=== PATIENT | female | born 1965 | race Caucasian/White ===

== ENCOUNTER 2016-09-22 07:17 | Day surgery (SDC) | payer OTHER ==
[2016-09-22 07:46] VITALS: BMI 22.3
[2016-09-22] MEDS ORDERED: PROPOFOL 20 ML ONE ×3 (07:50)
[2016-09-22] MEDS ORDERED: LIDOCAINE HCL/PF 2% SDV 5ML VIAL ONE (07:50)
[2016-09-22 08:44] VITALS: TEMP 97.5
[2016-09-22 13:06] VITALS: BP 102/66; PULSE 86
== END 2016-09-22 10:30 | disposition home or self-care (01) ==
LOC: JASU-ENDO 07:17
PROVIDERS: ATTEND Internal Medicine Gastroenterology
PROC: 0DJD8ZZ Inspection of Lower Intestinal Tract, Via Natural or Artificial Opening Endoscopic (ICD-10-PCS; principal; 2016-09-22 08:00)
DX: Z86.010 Personal history of colon polyps (principal); K64.8 Other hemorrhoids; K57.30 Diverticulosis of large intestine without perforation or abscess without bleeding; R22.9 Localized swelling, mass and lump, unspecified
CPT/HCPCS: 84703

== ENCOUNTER 2017-01-07 05:04 | Inpatient (IN) | payer OTHER ==
[2017-01-05 15:07] VITALS: BMI 21.7
[2017-01-07] MEDS ORDERED: ROPIVACAINE HCL 0.5% 30ML VIAL ONE (07:22)
[2017-01-07] MEDS ORDERED: MIDAZOLAM HCL 2 MG/2 ML SINGLE DOSE VIAL ONE ×2 (07:24)
--- NOTE | 2017-01-07 08:20 | HP ---
Past Medical History - Primary Care Physician PCP:: Thanh Hale - Admission Chief Complaint: pelvic pain, metrorrhagia, fibroid uterus History of Present Illness: 51 yo f with hx of pelvic pain, irregular painful periods and large fibroid uterus admitted for supracervical abdominal hysterectomy , bilateral salpingectomy, rba discussed with patient. History Source: Patient Limitations to Obtaining History: No Limitations - Past Surgical History Hx Myomectomy: No Hx Transabdominal Cerclage: No - Smoking History Smoking history: Never smoked Have you smoked in the past 12 months: No Aproximately how many cigarettes per day: 0 - Alcohol/Substance Use Hx Alcohol Use: No - Social History History of Recent Travel: No Home Medications - Allergies Allergies/Adverse Reactions: Allergies Allergy/AdvReac Type Severity Reaction Status Date / Time amoxicillin trihydrate Allergy Severe Rash Verified 08/27/14 16:20 [From Augmentin] potassium clavulanate Allergy Severe Rash Verified 08/27/14 16:20 [From Augmentin] - Home Medications Home Medications: Ambulatory Orders Biotin 300 mcg PO DAILY 05/31/14 Multivitamin [One Daily] 1 each PO DAILY 01/05/17 Chlorpheniramine Maleate 4 mg PO PRN PRN 01/07/17 Ranitidine [Zantac -] 150 mg PO DAILY 01/07/17 Review of Systems - Review of Systems Constitutional: reports: Weakness Eyes: reports: No Symptoms HENT: reports: No Symptoms Neck: reports: No Symptoms Cardiovascular: reports: No Symptoms Respiratory: reports: No Symptoms Gastrointestinal: reports: Abdominal Pain, Bloating Genitourinary: reports: Vaginal Bleeding Breasts: reports: No Symptoms Reported Musculoskeletal: reports: No Symptoms Integumentary: reports: No Symptoms Neurological: reports: No Symptoms Endocrine: reports: No Symptoms Hematology/Lymphatic: reports: No Symptoms Psychiatric: reports: No Symptoms Physical Exam-SENIOR SALES MANAGER Vital Signs: Vital Signs Temperature 98.9 F 01/07/17 07:27 Pulse Rate 78 01/07/17 07:27 Respiratory Rate 20 01/07/17 07:27 Blood Pressure 108/69 01/07/17 07:27 O2 Sat by Pulse Oximetry (%) 100 01/07/17 07:27 Constitutional: Yes: Well Nourished, No Distress, Calm Eyes: Yes: WNL, Conjunctiva Clear, EOM Intact HENT: Yes: WNL, Atraumatic, Normocephalic Neck: Yes: WNL, Supple, Trachea Midline Cardiovascular: Yes: WNL, Regular Rate and Rhythm Respiratory: Yes: WNL, Regular, CTA Bilaterally Gastrointestinal: Yes: WNL ...Rectal Exam: Yes: WNL Renal/: Yes: WNL Pelvis: Yes: WNL External Genitalia: Yes: Normal Cervix: Yes: Normal Uterus: Yes: Enlarged, Lumpy, Tender (multiple myomas 14weeks size) Adnexa: Not Palpable: Left, Right Breast(s): Yes: WNL Musculoskeletal: Yes: WNL Extremities: Yes: WNL Edema: No Integumentary: Yes: WNL Neurological: Yes: WNL, Alert, Oriented ...Motor Strength: WNL Psychiatric: Yes: WNL, Alert, Oriented Problem List - Problem (1) Pelvic pain Code(s): R10.2 - PELVIC AND PERINEAL PAIN (2) Metrorrhagia Code(s): N92.1 - EXCESSIVE AND FREQUENT MENSTRUATION WITH IRREGULAR CYCLE (3) Fibroid uterus Code(s): D25.9 - LEIOMYOMA OF UTERUS, UNSPECIFIED Qualifiers: Uterine leiomyoma location: intramural Qualified Code(s): D25.1 - Intramural leiomyoma of uterus (4) Fibroids, intramural Code(s): D25.1 - INTRAMURAL LEIOMYOMA OF UTERUS Assessment/Plan admit for supracervical abdominal hysterectomy, bilateral salpingectomy
[2017-01-07] MEDS ORDERED: DEXAMETHASONE SOD PHOSPHATE 4 MG/1 ML VIAL ONE ×2 (08:23→09:29)
[2017-01-07] MEDS ORDERED: PROPOFOL 20 ML ONE (08:25)
[2017-01-07] MEDS ORDERED: ROCURONIUM BROMIDE 50 MG/5 ML VIAL ONE (08:25)
[2017-01-07] MEDS ORDERED: LIDOCAINE HCL 2% (20ML MULTI-DOSE VIAL) NR ONE (08:25)
[2017-01-07] MEDS ORDERED: CLINDAMYCIN PHOSPHATE 600 MG/4 ML VIAL IVPB ONE (08:30)
[2017-01-07] MEDS ORDERED: LEVOFLOXACIN 500 MG PREMIX BAG IVPB ONE (08:35)
[2017-01-07] MEDS ORDERED: CLINDAMYCIN PHOSPHATE 600 MG/4 ML VIAL ONE (08:35)
[2017-01-07] MEDS ORDERED: LEVOFLOXACIN 500 MG IVPB 100 ML IVPB ONE (08:35)
[2017-01-07] MEDS ORDERED: NEOSTIGMINE METHYLSULFATE 0.5 MG/ML - 10 ML MDV ONE (09:31)
[2017-01-07] MEDS ORDERED: GLYCOPYRROLATE 0.2 MG/1 ML VIAL ONE (09:32)
[2017-01-07] MEDS ORDERED: DEXAMETHASONE SOD PHOSPHATE 4 MG/1 ML VIAL IVPUSH ONE (09:52)
[2017-01-07] MEDS ORDERED: PROMETHAZINE HCL 25 MG/1 ML VIAL IVPB PRN (09:52)
[2017-01-07] MEDS ORDERED: ONDANSETRON 4 MG/2 ML VIAL IVPUSH PRN (09:52)
[2017-01-07] MEDS ORDERED: PROMETHAZINE HCL 25 MG/1 ML VIAL IVPUSH PRN (09:52)
[2017-01-07] MEDS ORDERED: HYDROmorphone *PCA* 10MG/50ML DISP.SYRIN PCA SCH (10:00)
[2017-01-07] MEDS ORDERED: IBUPROFEN 800 MG/8 ML IJ IVPB PRN (10:18)
[2017-01-07] MEDS ORDERED: ONDANSETRON 4 MG/2 ML VIAL IVPB PRN (10:18)
[2017-01-07] MEDS ORDERED: oxyCODONE HCL 5 MG TABLET PO PRN (10:18)
[2017-01-07] MEDS: ELECTROLYTE-148 SOLN 1,000 ML IV SCH ×2 (12:00→18:00)
--- NOTE | 2017-01-07 14:03 | OP ---
DATE OF OPERATION: 01/07/2017 PREOPERATIVE DIAGNOSES: Pelvic pain, menorrhagia, and fibroid uterus. POSTOPERATIVE DIAGNOSES: Pelvic pain, menorrhagia, and fibroid uterus. PROCEDURE: Supracervical abdominal hysterectomy and bilateral salpingectomies. SURGEON: Thanh Hale MD TICKET COUNTER: . ANESTHESIA: General. ANESTHESIOLOGIST: Ulises Keen MD ESTIMATED BLOOD LOSS: 100 mL. OPERATION: Patient was taken to the operating room. Under adequate general anesthesia, a Pfannenstiel abdominal skin incision was made. Abdominal wall was cut layer by layer until peritoneum was exposed and incised. Upon entering the abdominal cavity, upper abdomen was checked and normal. Bowels were packed away. Then, there was a large fibroid uterus with multiple myomas. Both ovaries and tubes were normal. Bladder was normal. Cul-de-sac was free of adhesion. Then, this fibroid was delivered to the surface and then was identified, clamped with a LigaSure cautery, cauterized, and cut. The anterior leaf of broad ligament was opened. Bladder was pushed down. Then, both tubes were grasped with a Loraine clamp and then with a bipolar LigaSure cautery along the mesosalpinx. The tubes were removed. Then, a hole was made into the broad ligament and then uteroovarian ligament was grasped with the bipolar LigaSure cautery, cauterized, and cut, and the ovaries were severed from the uterus. Then, the uterine artery was identified. Bladder was further pushed down. Uterine artery was grasped with a Alan clamp, cut, and the clamp replaced with 3-0 Vicryl suture bilaterally. Then, parametrium was grasped with a Alan clamp, cut, and the clamp replaced with 0 Vicryl suture until the cervix was reached and then the uterus was removed above the cervix. Then, the endocervical canal was cauterized and then cervix was sutured with interrupted suture of 0 Vicryl and then reperitonealization of pelvic floor was done with continuous suture of 2-0 Vicryl. Both ovaries were inspected. No bleeding. Pelvic cavity 3rd time irrigated and no active bleeding was seen. Then, all the lap packs, sponge count, and instrument counts were correct. Peritoneum was closed with 0 Vicryl continuous suture. Peritoneum was closed with 0 Vicryl continuous suture. Muscles were brought together with interrupted suture of 0 Vicryl. Fascia was closed with 0 Vicryl continuous suture. Subcutaneous fat with interrupted suture of 0 Vicryl and the skin was closed with 4-0 Biosyn subcuticular continuous suture. Patient tolerated procedure well. Left the OR in good condition. Kristin [id number]
[2017-01-07] MEDS ORDERED: BENZOCAINE/MENTH/CETYLPYRD CL 1 EACH LOZENGE MM PRN ×2 (22:03)
[2017-01-08] MEDS: ELECTROLYTE-148 SOLN 1,000 ML IV SCH (01:32)
[2017-01-08 07:14] LABS: BASOPHIL 0.4 % (0-2.0); EOSINOPHIL 0.2 % (0-4.5); MCH 27.8 pg (25.7-33.7); MCHC 32.2 g/dl (32.0-36.0); MEAN CELL VOLUME 86.2 fl (80-96); MEAN PLT VOLUME 7.6 fl (7.5-11.1); NEUTROPHILS 73.6 % (42.8-82.8); PLATELET COUNT 334 K/MM3 (134-434); RDW 13.8 % (11.6-15.6); WHITE BLOOD COUNT 14.6 K/mm3 (4.0-10.0)
[2017-01-08 07:53] LABS: ANION GAP 7 (8-16); CALCIUM 8.8 mg/dL (8.5-10.1); CO2 28 mmol/L (21-32); CREATININE 0.8 mg/dL (0.55-1.02); GLUCOSE,RANDOM 92 mg/dL (74-106)
[2017-01-08] MEDS ORDERED: PCA PUMP KEY 1 EACH EACH ONE ×2 (09:19→11:43)
[2017-01-08] MEDS: PANTOPRAZOLE 40 MG TABLET (FP) PO SCH (09:23)
[2017-01-08] MEDS: ENOXAPARIN NA (PORCINE) 40 MG/0.4 ML DISP.SYRIN SQ SCH (09:24)
--- NOTE | 2017-01-08 09:49 | PN ---
Progress Note, Physician Chief Complaint: S/P SUPRACERVICAL HYSTERECTOMY POST OP DAY ONE UNDER GENERAL ANESTHESIA History of Present Illness: BILATERAL TAP BLOCKS FOR POST OP PAIN CONTROL WITH DIALAUDID PORTAINER OPERATOR - Current Medication List Current Medications: Active Medications Benzocaine/Menthol (Cepacol Lozenge -) 1 each MM Q2H PRN PRN Reason: SORE THROAT Benzocaine/Menthol (Cepacol Lozenge -) 1 each MM Q4H PRN PRN Reason: SORE THROAT Last Admin: 01/07/17 22:10 Dose: 1 each Bisacodyl (Dulcolax -) 10 mg PO ONCE ONE Stop: 01/08/17 11:01 Enoxaparin Sodium (Lovenox -) 40 mg SQ DAILY [facility] Last Admin: 01/08/17 09:24 Dose: 40 mg Fentanyl (Sublimaze Injection -) 25 mcg IVPUSH [id number] PRN PRN Reason: PAIN Stop: 01/10/17 09:53 Last Admin: 01/07/17 10:25 Dose: 25 mcg Hydromorphone HCl (Dilaudid Kindergartners Helper -) 0 mg PORTAINER OPERATOR PORTAINER OPERATOR [facility] PRN Reason: Protocol Stop: 01/14/17 09:52 Last Admin: 01/07/17 10:40 Dose: 10 mg Parenteral Electrolytes (Plasma-Lyte 148 -) 1,000 mls @ 125 mls/hr IV ASDIR [facility] Last Admin: 01/08/17 01:32 Dose: 125 mls/hr Levofloxacin (Levaquin 500 Mg Premixed Ivpb -) 100 mls @ 100 mls/hr IVPB ONCE ONE Stop: 01/08/17 10:59 Last Admin: 01/08/17 09:21 Dose: 100 mls/hr Ibuprofen (Motrin -) 600 mg PO Q6H PRN PRN Reason: FEVER Ibuprofen (Caldolor Injection -) 800 mg IVPB Q6H PRN PRN Reason: FEVER Ondansetron HCl (Zofran Injection) 4 mg IVPB Q6H PRN PRN Reason: NAUSEA Oxycodone HCl (Roxicodone -) 5 mg PO Q4H PRN PRN Reason: PAIN LEVEL 6-10 Pantoprazole Sodium (Protonix -) 40 mg PO DAILY [facility] Last Admin: 01/08/17 09:23 Dose: 40 mg Promethazine HCl (Phenergan Injection -) 12.5 mg IVPB Q6H PRN PRN Reason: NAUSEA AND/OR VOMITING - Objective Vital Signs: Vital Signs Temperature 98 F 01/08/17 08:29 Pulse Rate 72 01/08/17 08:29 Respiratory Rate 20 01/08/17 08:29 Blood Pressure 117/74 01/08/17 08:29 O2 Sat by Pulse Oximetry (%) 100 01/07/17 21:00 Constitutional: Yes: Well Nourished Cardiovascular: Yes: WNL Respiratory: Yes: WNL Gastrointestinal: Yes: WNL Labs: CBC, BMP 01/08/17 06:05 01/08/17 06:05 Assessment/Plan POST OP DAY ONE, PAIN UNDER CONTROL, NO NAUSEA OR VOMITING, MINIMAL USE OF PORTAINER OPERATOR , WILL DISCONTINUE PORTAINER OPERATOR AND CONVERT TO ORAL ANALGESIC, NO FURTHER INTERVENTION BY DEPT OF ANESTHESIOLOGY
[2017-01-08] MEDS ORDERED: oxyCODONE HCL 5 MG TABLET PO PRN (09:50)
[2017-01-08] MEDS ORDERED: LEVOFLOXACIN 500 MG IVPB 100 ML IVPB ONE (10:00)
[2017-01-08] MEDS ORDERED: BISACODYL 5 MG TABLET.DR (FP) PO ONE (11:00)
--- NOTE | 2017-01-08 14:55 | PN ---
Progress Note (short form) - Note Progress Note: pod 1 , has low abdominal discomfort pain, not passing gas CBC, BMP 01/08/17 06:05 01/08/17 06:05 Last Vital Signs Temp Pulse Resp BP Pulse Ox 97.8 F 82 20 100/52 100 01/08/17 14:00 01/08/17 14:00 01/08/17 14:00 01/08/17 14:00 01/07/17 21:00 abdomen soft, no distension, no cva incision dry, clean no vaginal bleeding, able to void pod 1 has pain. not passing gas ,no distension, plan pain management. ambulate, revaluate Problem List - Problems (1) Pelvic pain Code(s): R10.2 - PELVIC AND PERINEAL PAIN (2) Metrorrhagia Code(s): N92.1 - EXCESSIVE AND FREQUENT MENSTRUATION WITH IRREGULAR CYCLE (3) Fibroid uterus Code(s): D25.9 - LEIOMYOMA OF UTERUS, UNSPECIFIED Qualifiers: Uterine leiomyoma location: intramural Qualified Code(s): D25.1 - Intramural leiomyoma of uterus (4) Fibroids, intramural Code(s): D25.1 - INTRAMURAL LEIOMYOMA OF UTERUS
[2017-01-08] MEDS: IBUPROFEN 600 MG TABLET (FP) PO PRN (17:24)
--- NOTE | 2017-01-09 05:15 | DS ---
Physical Exam-BODY SPECIALIST Vital Signs: Vital Signs Temperature 99.4 F 01/08/17 22:00 Pulse Rate 86 01/08/17 22:00 Respiratory Rate 20 01/08/17 22:00 Blood Pressure 104/59 01/08/17 22:00 O2 Sat by Pulse Oximetry (%) 100 01/08/17 21:00 Constitutional: Yes: Well Nourished, No Distress, Calm Eyes: Yes: WNL, Conjunctiva Clear, EOM Intact HENT: Yes: WNL, Atraumatic, Normocephalic Neck: Yes: WNL, Supple, Trachea Midline Cardiovascular: Yes: WNL, Regular Rate and Rhythm Respiratory: Yes: WNL, Regular, CTA Bilaterally Gastrointestinal: Yes: WNL ...Rectal Exam: Yes: WNL Renal/: Yes: WNL Breast(s): Yes: WNL Musculoskeletal: Yes: WNL Extremities: Yes: WNL Integumentary: Yes: WNL Wound/Incision: Yes: Clean/Dry, Well Approximated, Sutures Intact Neurological: Yes: WNL, Alert, Oriented ...Motor Strength: WNL Psychiatric: Yes: WNL, Alert, Oriented Labs: CBC, BMP 01/08/17 06:05 01/08/17 06:05 Discharge Summary Reason For Visit: UTERINE FIBROIDS Current Active Problems Fibroid uterus (Acute) Fibroids, intramural (Acute) Metrorrhagia (Acute) Pelvic pain (Acute) Procedures: Principal: supracervical abdominal hysterectomy, bilateral aslpingectomy Hospital Course: uneventful Condition: Good - Instructions Diet, Activity, Other Instructions: regular diet, follow up office 2 weeks Referrals: Thanh Hale MD [Staff Physician] - Disposition: HOME - Home Medications Comprehensive Discharge Medication List: Ambulatory Orders Biotin 300 mcg PO DAILY 05/31/14 Multivitamin [One Daily] 1 each PO DAILY 01/05/17 Chlorpheniramine Maleate 4 mg PO PRN PRN 01/07/17 Ibuprofen [Motrin -] 600 mg PO QID #28 tablet 01/07/17 Ranitidine [Zantac -] 150 mg PO DAILY 01/07/17
[2017-01-09] MEDS: ENOXAPARIN NA (PORCINE) 40 MG/0.4 ML DISP.SYRIN SQ SCH (09:05)
[2017-01-09] MEDS ORDERED: LORATADINE 10 MG TABLET PO SCH (10:00)
[2017-01-09] MEDS: PANTOPRAZOLE 40 MG TABLET (FP) PO SCH (10:21)
[2017-01-09 12:25] VITALS: BP 108/68; PULSE 90; TEMP 98.9
[2017-01-09] MEDS: IBUPROFEN 600 MG TABLET (FP) PO PRN (15:16)
--- NOTE | 2017-01-09 17:10 | PATH ---
Surgical Pathology Report Patient Name: MARIBELL SCHOFIELD [facility]. Rec. #: [id number] /Age/Gender: 1965 (Age: 51) / F Account: [id number] Location: [facility] OBS/INTEGRATION LEAD Taken: 01/07/2017 Received: 01/07/2017 Reported: 01/09/2017 Physicians: Thanh Hale M.D. Specimen(s) Received UTERUS, PART OF CERVIX, RIGHT AND LEFT TUBE TUBES Clinical History Uterine fibroid, pelvic pain, menorrhagia Final Diagnosis UTERUS AND BILATERAL FALLOPIAN TUBES, SUPRACERVICAL HYSTERECTOMY AND BILATERAL SALPINGECTOMY: UTERUS, 563 GRAMS, WITH LEIOMYOMATA, AND PROLIFERATIVE ENDOMETRIUM. FOCAL ADENOMYOSIS IS PRESENT. BENIGN BILATERAL FALLOPIAN TUBES PRESENT. Electronically Signed Feroz Braxton M.D. Gross Description Received in formalin labeled "uterus, part of cervix, right and left tubes," is a 563 g uterus with an attached portion of cervix and an attached right fallopian tube. The left fallopian tube is separately received within the same container. The specimen measures 13.2 cm from superior to inferior, 10.1 cm from anterior to posterior and 9.8 cm from left to right. The serosa is pink-qureshi with multiple bulging subserosal nodules. There is no ectocervix present. The endocervix is unremarkable. The endometrial cavity measures 5 cm in length and 2 cm from cornu to cornu. The endometrium is qureshi-red and averages 0.3 cm in thickness. There are multiple intramural nodules present, measuring up to 5 cm in greatest dimension. The largest intramural nodule is necrotic and calcified. The remaining intramural nodules and subserosal nodules are qureshi, firm to rubbery with whorled architecture. No areas of hemorrhage or necrosis are identified. The remaining myometrium is qureshi pink and averages 5 cm in thickness. The right fimbriated fallopian tube is desouza purple and measures 6 cm in length. Sectioning reveals an unremarkable lumen. The left fimbriated fallopian tube is desouza purple measures 5.5 cm in length. Sectioning reveals an unremarkable lumen. Coal Getter sections are submitted in 15 cassettes as follows: 1-cervical stump margin of resection; 5-0-wnrnzpav endomyometrium; 6-6-hclqbzcqm endomyometrium; 6-7-largest intramural nodule (following decalcification); 5-9-rvbecuvfaj intramural nodules; 60-46-owkycuukeo nodules; 12-right fallopian tube fimbria; 13-cross sections of right fallopian tube; 14-left fallopian tube fimbria; 15-cross sections of left fallopian tube. 01/07/201701/07/2017
== END 2017-01-09 17:30 | disposition home or self-care (01) | DRG 743 ==
LOC: JSAMEDAYSX 05:04 → J3W 12:11
PROVIDERS: ADMIT Obstetrics & Gynecology; ATTEND Obstetrics & Gynecology
PROC: 0UT70ZZ Resection of Bilateral Fallopian Tubes, Open Approach (ICD-10-PCS; 2017-01-07)
PROC: 0UT90ZZ Resection of Uterus, Open Approach (ICD-10-PCS; principal; 2017-01-07 08:00)
DX: D25.1 Intramural leiomyoma of uterus (principal); N92.1 Excessive and frequent menstruation with irregular cycle; R10.2 Pelvic and perineal pain; K21.9 Gastro-esophageal reflux disease without esophagitis; E04.1 Nontoxic single thyroid nodule
CPT/HCPCS: 36415; 80048; 84703; 85025; 88307-TC; 94010; 94760

== ENCOUNTER → 2020-01-27 | Day surgery (SDC) | payer OTHER ==
--- NOTE | 2020-01-30 17:17 | PATH ---
Cytology Non-Gynecological Report Patient Name: MARIBELL SCHOFIELD [facility]. Rec. #: [id number] /Age/Gender: 1965 (Age: 54) / F Account: [id number] Location: RADIOLOGY INTER Taken: 01/27/2020 Received: 01/27/2020 Reported: 01/30/2020 Physicians: Kristin Catherine M.D. Specimen(s) Received THYROID, LEFT LOBE, FINE NEEDLE ASPIRATION Clinical History Left lobe, 1.56 x 0.80 x 0.88 cm Final Diagnosis THYROID, LEFT LOBE, FINE NEEDLE ASPIRATION: SATISFACTORY FOR EVALUATION. BETHESDA CLASS II: BENIGN. CYTOLOGIC FINDINGS SHOW A BENIGN FOLLICULAR NODULE WITH FEATURES SUGGESTIVE OF CHRONIC LYMPHOCYTIC THYROIDITIS. FEW CLUSTERS OF SMALL FOLLICULAR CELLS IN A BACKGROUND OF SCATTERED LYMPHOCYTES, RARE LYMPHOHISTIOCYTIC AGGREGATES, AND MINIMAL COLLOID. Comment: Suggest clinical/radiologic and serologic correlation. Electronically Signed Laurence Bolanos M.D. Gross Description Received are eight direct smears, four of which are air-dried and Diff-Quik stained, and four of which are alcohol fixed and Pap stained. Also received is 20 ml of bloody formalin from which one cellblock is prepared.
== END | disposition home or self-care (01) ==
LOC: JRADIR 10:06
PROVIDERS: ATTEND Internal Medicine Endocrinology, Diabetes & Metabolism
PROC: 0G9G3ZX Drainage of Left Thyroid Gland Lobe, Percutaneous Approach, Diagnostic (ICD-10-PCS; principal; 2020-01-27)
DX: E04.1 Nontoxic single thyroid nodule (principal)
CPT/HCPCS: 76942; 88173; 88305-TC

== ENCOUNTER 2021-11-11 05:03 | Day surgery (SDC) | payer OTHER ==
[2021-11-08 15:16] VITALS: BMI 24.3
[2021-11-11 09:36] VITALS: TEMP 97
[2021-11-11 10:25] VITALS: BP 107/70; PULSE 80
== END 2021-11-11 12:00 | disposition home or self-care (01) ==
LOC: JASU-ENDO 05:03
PROVIDERS: ATTEND Internal Medicine Gastroenterology
PROC: 0DBE8ZX Excision of Large Intestine, Via Natural or Artificial Opening Endoscopic, Diagnostic (ICD-10-PCS; 2021-11-11)
PROC: 0DBL8ZX Excision of Transverse Colon, Via Natural or Artificial Opening Endoscopic, Diagnostic (ICD-10-PCS; 2021-11-11)
PROC: 0DB98ZX Excision of Duodenum, Via Natural or Artificial Opening Endoscopic, Diagnostic (ICD-10-PCS; 2021-11-11)
PROC: 0DB78ZX Excision of Stomach, Pylorus, Via Natural or Artificial Opening Endoscopic, Diagnostic (ICD-10-PCS; 2021-11-11)
PROC: 0DB28ZX Excision of Middle Esophagus, Via Natural or Artificial Opening Endoscopic, Diagnostic (ICD-10-PCS; 2021-11-11)
PROC: 0DB38ZX Excision of Lower Esophagus, Via Natural or Artificial Opening Endoscopic, Diagnostic (ICD-10-PCS; 2021-11-11)
PROC: 0DBG8ZX Excision of Left Large Intestine, Via Natural or Artificial Opening Endoscopic, Diagnostic (ICD-10-PCS; principal; 2021-11-11 09:00)
DX: Z12.11 Encounter for screening for malignant neoplasm of colon (principal); Z86.010 Personal history of colon polyps; K57.30 Diverticulosis of large intestine without perforation or abscess without bleeding; D12.2 Benign neoplasm of ascending colon; D12.3 Benign neoplasm of transverse colon; K29.00 Acute gastritis without bleeding; K29.80 Duodenitis without bleeding; K21.00 Gastro-esophageal reflux disease with esophagitis, without bleeding
CPT/HCPCS: 88305-TC; 88342-TC